=== PATIENT | female | born 1970 | race Caucasian/White ===

== ENCOUNTER 2019-04-07 13:43 | Emergency (ER) | payer BC ==
--- NOTE | 2019-04-07 13:46 | PDOC ---
History of Present Illness - General Chief Complaint: Pain, Acute Stated Complaint: ABD PAIN Time Seen by Provider: 04/07/19 13:45 History Source: Patient Exam Limitations: No Limitations - History of Present Illness Initial Comments: 04/07/19 14:09 Tana Arita is a 48yF w PMHx HLD, obesity presenting w epigastric pain. Pain started 1 week ago, exacerbated by eating. Woke up at 3am this morning w sharp LLQ pain lasting 30 minutes. Currently asymptomatic in ED. Took ibuprofen without relief. Denies fever, nausea/vomiting, SOB, chest pain, urinary changes , normal bowel movements. Past History - Past Medical History Allergies/Adverse Reactions: Allergies Allergy/AdvReac Type Severity Reaction Status Date / Time No Known Allergies Allergy Verified 04/07/19 13:44 Home Medications: Ambulatory Orders NK [No Known Home Medication] 04/07/19 Anemia: No Asthma: No Cancer: No Cardiac Disorders: No CVA: No COPD: No CHF: No Dementia: No Diabetes: No GI Disorders: No Disorders: No HTN: No Hypercholesterolemia: No Liver Disease: No Seizures: No Thyroid Disease: No - Surgical History Abdominal Surgery: No Appendectomy: No Cardiac Surgery: No Cholecystectomy: No Lung Surgery: No Neurologic Surgery: No Orthopedic Surgery: No - Psycho Social/Smoking Cessation Hx Smoking History: Current every day smoker Have you smoked in the past 12 months: Yes Number of Cigarettes Smoked Daily: 20 Hx Alcohol Use: No Drug/Substance Use Hx: No Substance Use Type: None Hx Substance Use Treatment: No Review of Systems - Review of Systems Able to Perform ROS?: Yes Constitutional: No: Chills, Fever, Malaise HEENTM: No: Eye Pain, Nose Pain, Throat Pain, Mouth Pain Respiratory: No: Cough, Shortness of Breath Cardiac (ROS): No: Chest Pain, Palpitations, Syncope ABD/GI: Yes: Poor Appetite (pain worse w eating). No: Abdominal Distended, Constipated, Diarrhea, Nausea, Rectal Bleeding, Vomiting, Abdominal cramping : No: Burning, Dysuria, Discharge, Frequency, Flank Pain, Hematuria Musculoskeletal: No: Back Pain, Joint Pain, Joint Swelling, Muscle Pain Integumentary: No: Bruising, Dryness, Erythema Neurological: No: Headache, Seizure, Tingling, Tremors Psychiatric: No: Anxiety, Depression, Stressors Endocrine: No: Excessive Sweating, Flushing, Intolerance to Cold, Intolerance to Heat Hematologic/Lymphatic: No: Anemia, Blood Clots, Easy Bleeding *Physical Exam - Physical Exam General Appearance: Yes: Nourished, Appropriately Dressed, Obese. No: Apparent Distress HEENT: positive: EOMI, NASRA, Normal Voice, Hearing Grossly Normal. negative: Scleral Icterus (R), Scleral Icterus (L), Nasal Congestion, Rhinorrhea Respiratory/Chest: positive: Lungs Clear, Normal Breath Sounds. negative: Chest Tender, Respiratory Distress, Crackles, Rales, Rhonchi, Stridor, Wheezing Cardiovascular: positive: Regular Rhythm, Regular Rate, S1, S2. negative: Edema , Murmur Gastrointestinal/Abdominal: positive: Normal Bowel Sounds, Flat, Soft. negative : Tender, Organomegaly, Distended, Guarding, Rebound, Hernia, Mass Extremity: positive: Normal Capillary Refill Integumentary: positive: Normal Color Neurologic: positive: Fully Oriented, Alert, Normal Mood/Affect, Normal Response , Responsive. negative: Numbness, Confused, Disoriented Heart Score/ECG Review - History History: Slightly suspicious - Electrocardiogram EKG: Normal - Age Age: 45-65 - Risk Factors Risk Factors Heart Score: Yes Hx Hypercholesterolemia, No Hx Hypertension, No Hx Diabetes, Yes Smoking History, No Positive family hx of cardiac disease, Yes Hx Obesity Based on the list above the patient has:: >/=3 risk factors or Hx atherosclerotic disease - Troponin Troponin: </= normal limit - Score Heart Score - Total: 3 ED Treatment Course - LABORATORY CBC & Chemistry Diagram: 04/07/19 14:15 04/07/19 14:15 Medical Decision Making - Medical Decision Making 04/07/19 14:12 CBC CMP lipase trop EKG CXR RUQ US shows adenomyomatosis without calculi in gallbladder, fatty liver pepcid, maalox EKG shows NSR, HR 78, QTc 449, no ST changes CBC CMP lipase normal, neg trop Tana Arita is a 48yF w PMHx HLD, obesity presenting w epigastric pain likely d /t GERD (pain w eating, more burping) vs gastric ulcer (pain worse w eating, ibuprofen use). US did not show cholelithiasis or gallbladder infection. vs gastric ulcer (pain worse w eating, ibuprofen use). No evidence of ACS w negative trop, NSR EKG. Given pepcid, maalox. D/c home w GI referral and omeprazole x 1 week instructions. Discharge - Discharge Information Problems reviewed: Yes Clinical Impression/Diagnosis: GERD (gastroesophageal reflux disease) Qualifiers: Esophagitis presence: without esophagitis Qualified Code(s): K21.9 - Gastro- esophageal reflux disease without esophagitis Condition: Stable Disposition: HOME - Admission No - Follow up/Referral Referrals: Av Peoples MD [Primary Care Provider] - Anatoly Tenorio MD [Staff Physician] - - Patient Discharge Instructions Patient Printed Discharge Instructions: DI for Epigastric Pain Additional Instructions: You were seen for abdominal pain. Your labs and ultrasound did not show anything concerning. Please make an appointment to see the referred Dr Tenorio metal grinder and your primary care doctor regarding your pain. Take over the counter omeprazole for the next week as directed on packaging. Come back to the ED if you have worsening chest or abdominal pain, trouble breathing or vomiting. - Post Discharge Activity
[2019-04-07 13:55] VITALS: TEMP 98.7; BMI 30.9
[2019-04-07] MEDS ORDERED: FAMOTIDINE 20 MG/50 ML IVPB 20 MG/50 ML MG IVPB ONE (14:08)
[2019-04-07] MEDS ORDERED: MAG HYDROX/AL HYDROX/SIMETH -MYLANTA- ORAL SUSPENSION PO ONE (14:08)
--- NOTE | 2019-04-07 14:22 | PDOC ---
Attending Attestation - Resident Resident Name: Marty,Peter - ED Attending Attestation I have performed the following: I have examined & evaluated the patient, The case was reviewed & discussed with the resident, I agree w/resident's findings & plan, Exceptions are as noted - HPI HPI: 04/07/19 15:36 48 years old, no significant past medical history presents emergency Department with left-sided abdominal pain times one week after meals. No chest pain or shortness of breath last night pain became more persistent concent the middle the night she presents to the emergency department currently pain-free. Pain seems to be primarily associated with meals - Physicial Exam PE: 04/07/19 15:37 Vitals: Triage Vital signs reviewed General Appearance: no acute distress, well nourished well developed, Head: Atraumatic, Neck: Supple;No Nucal rigidity Chest Wall: Nontender Cardiac: Regular rate and rhythym, no murmurs, no rubs, no gallops, Lungs: Clear to auscultation bilateral, good air movement bilaterally, Abdomen: Soft, non distended, normal bowel sounds, non tender to palpation Extremities: Full range of motion to all extremities, no cyanosis, clubbing, or edema Skin: Warm and dry, no rashes or lesions, no rash, no petechiae Psych: normal mood, normal affect - Medical Decision Making 04/07/19 15:38 Well-appearing no apparent distress history examination consistent with gastritis EKG nonischemic sinus rhythm [address] elevations or T-wave inversions troponin negative heart score 2 Laboratory analysis unremarkable ultrasound demonstrated no gallstones or thickening normal CBD Patient will follow up with GI this week we'll treat with one-week course of Prilosec she'll return to ED for any severe worsening symptoms or for any concerns. Findings, the need for follow-up and strict return instructions discussed with patient.
[2019-04-07 14:44] LABS: BASO % 0.7 % (0-2.0); EOS % 1.9 % (0-4.5); HEMATOCRIT 38.8 % (32.4-45.2); HEMOGLOBIN 12.8 GM/dl (10.7-15.3); LYMPH % 34.5 % (8-40); MCH 30.8 pg (25.7-33.7); MCHC 32.9 g/dl (32.0-36.0); MEAN CELL VOLUME 93.7 fl (80-96); MEAN PLT VOLUME 7.8 fl (7.5-11.1); MONO % 5.3 % (3.8-10.2); NEUT % 57.6 % (42.8-82.8); PLATELET COUNT 339 K/MM3 (134-434); RBC 4.14 M/mm3 (3.60-5.2); RDW 13.1 % (11.6-15.6)
[2019-04-07 14:47] LABS: ALBUMIN 3.8 g/dl (3.4-5.0); BILIRUBIN,TOTAL 0.3 mg/dl (0.2-1); CALCIUM 8.6 mg/dl (8.5-10); CREATININE 0.9 mg/dl (0.55-1.3); POTASSIUM 3.7 mmol/L (3.5-5.1); TOT PROT 7.2 g/dl (6.4-8.2)
[2019-04-07 16:04] VITALS: BP 143/65; PULSE 84
--- NOTE | 2019-04-08 10:26 | EKG ---
Test Reason : Blood Pressure : / mmHG Vent. Rate : 078 BPM Atrial Rate : 078 BPM P-R Int : 134 ms QRS Dur : 076 ms QT Int : 394 ms P-R-T Axes : 079 042 060 degrees QTc Int : 449 ms NORMAL SINUS RHYTHM NORMAL ECG NO PREVIOUS ECGS AVAILABLE Confirmed by ZACKARY BECKER, BOWEN ([id number]) on 04/08/2019 10:25:49 AM Referred By: JOSE RIOS Confirmed By:BOWEN RAYMUNDO MD
== END 2019-04-07 16:05 | disposition home or self-care (01) ==
LOC: FER 13:43
PROC: 3E033GC Introduction of Other Therapeutic Substance into Peripheral Vein, Percutaneous Approach (ICD-10-PCS; principal; 2019-04-07)
DX: K21.9 Gastro-esophageal reflux disease without esophagitis (principal); E78.5 Hyperlipidemia, unspecified; E66.9 Obesity, unspecified; Z68.31 Body mass index [BMI] 31.0-31.9, adult
CPT/HCPCS: 36415; 71046-TC-FY; 76705-TC; 80053; 83690; 84484; 85025; 93005; 99285-25

== ENCOUNTER 2020-09-02 06:31 | Day surgery (SDC) | payer BC ==
[2020-09-01 12:23] VITALS: BMI 31.6
[2020-09-02 08:57] VITALS: TEMP 99.1
[2020-09-02] MEDS ORDERED: LABETALOL HCL 5 MG/1 ML (100MG/20 ML VIAL) ONE (10:48)
[2020-09-02 11:59] VITALS: BP 173/77; PULSE 67
== END 2020-09-02 12:05 | disposition home or self-care (01) ==
LOC: JASU-ENDO 06:31
PROVIDERS: ATTEND Internal Medicine Gastroenterology
PROC: 0DB77ZX Excision of Stomach, Pylorus, Via Natural or Artificial Opening, Diagnostic (ICD-10-PCS; 2020-09-02)
PROC: 0DBL8ZX Excision of Transverse Colon, Via Natural or Artificial Opening Endoscopic, Diagnostic (ICD-10-PCS; 2020-09-02)
PROC: 0DBL8ZX Excision of Transverse Colon, Via Natural or Artificial Opening Endoscopic, Diagnostic (ICD-10-PCS; 2020-09-02)
PROC: 3E0H8KZ Introduction of Other Diagnostic Substance into Lower GI, Via Natural or Artificial Opening Endoscopic (ICD-10-PCS; 2020-09-02)
PROC: 0DBL8ZX Excision of Transverse Colon, Via Natural or Artificial Opening Endoscopic, Diagnostic (ICD-10-PCS; 2020-09-02)
PROC: 0DB98ZX Excision of Duodenum, Via Natural or Artificial Opening Endoscopic, Diagnostic (ICD-10-PCS; principal; 2020-09-02 09:30)
DX: Z12.11 Encounter for screening for malignant neoplasm of colon (principal); D12.3 Benign neoplasm of transverse colon; K29.80 Duodenitis without bleeding; K25.3 Acute gastric ulcer without hemorrhage or perforation; K64.8 Other hemorrhoids
CPT/HCPCS: 88305-TC; 88342-TC

== ENCOUNTER 2023-11-26 12:47 | Emergency (ER) | payer BC ==
[2023-11-26 12:51] VITALS: TEMP 98.1; BMI 28.6
[2023-11-26 14:24] LABS: HEMATOCRIT 39.5 % (32.4-45.2); MEAN CELL VOLUME 93.8 fl (80-96); MEAN PLT VOLUME 7.7 fl (7.5-11.1); PLATELET COUNT 245.4 10^3/uL (134-434); RBC 4.21 10^6/uL (3.60-5.2); WHITE BLOOD COUNT 11.2 10^3/uL (4.0-10.8)
[2023-11-26 14:31] LABS: ALBUMIN 4.2 g/dl (3.4-5.0); ALK PHOS 72 U/L (45-117); ANION GAP 7 mmol/L (4-13); BILIRUBIN,TOTAL 0.4 mg/dl (0.2-1); CALCIUM 9.5 mg/dl (8.5-10.1); CHLORIDE 107 mmol/L (98-107); CO2 26 mmol/L (21-32); CREATININE 1.1 mg/dl (0.6-1.3); GLUCOSE,RANDOM 114 mg/dl (74-106); MAGNESIUM 2.2 mg/dL (1.8-2.4); POTASSIUM 3.7 mmol/L (3.5-5.1); SGOT/AST 12 U/L (15-37); SGPT/ALT 10 U/L (7-52); SODIUM 140 mmol/L (136-145); TOT PROT 6.6 g/dl (6.4-8.2)
[2023-11-26 14:48] VITALS: BP 177/96; PULSE 89; RESP 18
[2023-11-26 15:01] LABS: PLATELET ESTIMATE ADEQUATE
[2023-11-26 15:06] LABS: INR 0.94 (0.83-1.09); PROTHROMBIN TIME (PATIENT) 10.7 SEC (9.7-13.0)
[2023-11-26 15:09] LABS: ACTIVATED PTT 31.8 SECONDS (25.2-36.5)
== END 2023-11-26 16:11 | disposition home or self-care (01) ==
LOC: FER 12:47
DX: S20.212A Contusion of left front wall of thorax, initial encounter (principal); S01.80XA Unspecified open wound of other part of head, initial encounter; R55 Syncope and collapse; R61 Generalized hyperhidrosis; R11.0 Nausea; W01.198A Fall on same level from slipping, tripping and stumbling with subsequent striking against other object, initial encounter
CPT/HCPCS: 36415; 71046-TC-FY; 80053; 83735; 84484; 85027; 85610; 85730; 86850; 86900; 86901; 93005; 99285-25

== ENCOUNTER 2024-07-15 04:41 | Day surgery (SDC) | payer BC ==
[2024-07-14 13:55] VITALS: BMI 26.5
[2024-07-15 11:20] VITALS: TEMP 97.8
[2024-07-15 12:05] VITALS: BP 162/74; PULSE 67; RESP 14
== END 2024-07-15 12:10 | disposition home or self-care (01) ==
LOC: JASU-ENDO 04:41
PROVIDERS: ATTEND Internal Medicine Gastroenterology
PROC: 0DBL8ZX Excision of Transverse Colon, Via Natural or Artificial Opening Endoscopic, Diagnostic (ICD-10-PCS; 2024-07-15)
PROC: 0DBN8ZX Excision of Sigmoid Colon, Via Natural or Artificial Opening Endoscopic, Diagnostic (ICD-10-PCS; 2024-07-15)
PROC: 0DBK8ZX Excision of Ascending Colon, Via Natural or Artificial Opening Endoscopic, Diagnostic (ICD-10-PCS; principal; 2024-07-15 11:00)
DX: Z12.11 Encounter for screening for malignant neoplasm of colon (principal); D12.3 Benign neoplasm of transverse colon; K63.5 Polyp of colon; K64.8 Other hemorrhoids; K57.30 Diverticulosis of large intestine without perforation or abscess without bleeding; Z86.0109 Personal history of other colon polyps
CPT/HCPCS: 88305-TC